=== PATIENT | male | born 1965 | race Caucasian/White ===

== ENCOUNTER 2018-07-14 02:09 | Emergency (ER) | payer OTHER ==
--- NOTE | 2018-07-14 03:19 | XR ---
EXAM: XR Chest, 2 Views CLINICAL HISTORY: ITS.REASON XR Reason: Chest Pain TECHNIQUE: Frontal and lateral views of the chest. COMPARISON: No relevant prior studies available. FINDINGS: Lungs: Unremarkable. No consolidation. Pleural space: Unremarkable. No pneumothorax. Heart: Unremarkable. No cardiomegaly. Mediastinum: Unremarkable. Bones/joints: Degenerative changes noted involving the thoracic spine. IMPRESSION: No focal consolidation or definite acute cardiopulmonary process identified.
[2018-07-14 03:21] LABS: ALT 29 U/L (21-72); AST 24 U/L (17-59); Albumin 4.3 g/dL (3.5-5.0); Alkaline Phosphatase 60 U/L (38-126); Anion Gap 10 mmol/L; Basophils % (A) 1 %; Blood Urea Nitrogen 20 mg/dL (9-20); Calcium 9.8 mg/dL (8.4-10.2); Carbon Dioxide 28 mmol/L (22-30); Chloride 102 mmol/L (98-107); Eosinophils # (A) 0.1 k/uL (0-0.7); Eosinophils % (A) 1 %; Glucose 110 mg/dL (74-99); HCT 47.5 % (39.0-53.0); HGB 15.9 gm/dL (13.0-17.5); INR 1.1 (<1.2); Lymphocytes # (A) 1.8 k/uL (1.0-4.8); Lymphocytes % (A) 35 %; MCH 31.2 pg (25.0-35.0); MCHC 33.5 g/dL (31.0-37.0); MCV 93.2 fL (80.0-100.0); Magnesium 1.8 mg/dL (1.6-2.3); Mean Platelet Volume 6.9; Monocytes # (A) 0.4 k/uL (0-1.0); Monocytes % (A) 7 %; Neutrophils # (A) 2.6 k/uL (1.3-7.7); Neutrophils % (A) 52 %; Partial Thromboplastin Time 28.1 sec (22.0-30.0); Platelet Count 220 k/uL (150-450); Potassium 3.4 mmol/L (3.5-5.1); Prothrombin Time 11.3 sec (9.0-12.0); RDW 13.3 % (11.5-15.5); Sodium 140 mmol/L (137-145); Total Bilirubin 0.6 mg/dL (0.2-1.3); Total Protein 7.3 g/dL (6.3-8.2)
--- NOTE | 2018-07-14 04:20 | ED ---
Chest Pain HPI - General Chief Complaint: Chest Pain Stated Complaint: chest pressure Time Seen by Provider: 07/14/18 02:25 Source: patient Mode of arrival: ambulatory Limitations: no limitations - History of Present Illness Initial Comments: This patient's 52-year-old man who presents to be evaluated for chest pains. He states that he had gone to sleep and then was awakened by feeling of tightness in his chest. He states that he also felt like he cannot catch his breath. I states that after being awake for sure. Time the symptoms all resolved and that he feels well now. He states that he does not get exertional chest pain. He does not have any other anginal type symptoms, including no diaphoresis, dyspnea, nausea or vomiting, lightheadedness or palpitations MD Complaint: chest pain Onset/Timin -: hour(s) Onset: awoke with symptoms Pain Location: substernal Pain Radiation: LUE Severity: moderate Quality: tightness Consistency: now resolved Improves With: nothing Worsens With: nothing Treatments Prior to Arrival: none - Related Data Allergies Allergy/AdvReac Type Severity Reaction Status Date / Time No Known Allergies Allergy Verified 07/14/18 02:18 Review of Systems ROS Statement: Those systems with pertinent positive or pertinent negative responses have been documented in the HPI. ROS Other: All systems not noted in ROS Statement are negative. Constitutional: Denies: fever, chills Respiratory: Denies: cough, dyspnea Cardiovascular: Reports: chest pain. Denies: palpitations, dyspnea on exertion, orthopnea, edema, syncope Gastrointestinal: Denies: abdominal pain, nausea, vomiting Genitourinary: Denies: dysuria, hematuria Musculoskeletal: Denies: back pain Skin: Denies: rash Neurological: Denies: headache, weakness, numbness EKG Findings - EKG Comments: EKG Findings:: Partial bundle branch block - EKG Results: EKG: interpreted by ERMD, sinus rhythm, normal axis, normal ST/T Past Medical History Additional Past Medical History / Comment(s): diverticulitis History of Any Multi-Drug Resistant Organisms: None Reported Past Surgical History: Appendectomy, Heart Catheterization, Hernia Repair Additional Past Surgical History / Comment(s): part of large intestine removed Past Psychological History: No Psychological Hx Reported Smoking Status: Never smoker Past Alcohol Use History: Occasional Past Drug Use History: None Reported General Exam Limitations: no limitations General appearance: alert, in no apparent distress Head exam: Present: atraumatic, normocephalic Eye exam: Present: normal appearance. Absent: scleral icterus, conjunctival injection ENT exam: Present: normal oropharynx Neck exam: Present: normal inspection Respiratory exam: Present: normal lung sounds bilaterally. Absent: respiratory distress, wheezes, rales, rhonchi, stridor Cardiovascular Exam: Present: regular rate, normal rhythm, normal heart sounds. Absent: systolic murmur, diastolic murmur, rubs, gallop GI/Abdominal exam: Present: soft. Absent: distended, tenderness, guarding, rebound, rigid, mass Extremities exam: Present: normal inspection, normal capillary refill. Absent: pedal edema, calf tenderness Back exam: Absent: CVA tenderness (R), CVA tenderness (L) Neurological exam: Present: alert Skin exam: Present: warm, dry, intact, normal color. Absent: rash Course Vital Signs 07/14/18 07/14/18 02:14 04:30 Temperature 98.5 F 98.1 F Pulse Rate 94 80 Respiratory 18 20 Rate Blood Pressure 187/108 172/93 O2 Sat by Pulse 98 98 Oximetry Chest Pain MDM - MDM Patient is 52-year-old man who presents with symptoms suggestive of episode asleep apnea. He otherwise is fairly active and does not get exertional chest pains. We discussed further workup options, the patient would like to follow-up as an outpatient to have a stress test and probably a sleep study. We discussed appropriate return parameters. Disposition Clinical Impression: Chest pain Disposition: HOME SELF-CARE Condition: Good Instructions (If sedation given, give patient instructions): Chest Pain (ED) Is patient prescribed a controlled substance at d/c from ED?: No Referrals: Nonstaff,Physician [Primary Care Provider] - 1-2 days
[2018-07-14 04:32] VITALS: BP 172/93; PULSE 80; RESP 20; TEMP 98.1
== END 2018-07-14 04:32 | disposition home or self-care (01) ==
LOC: EC 02:09
DX: R07.2 Precordial pain (principal); Z95.818 Presence of other cardiac implants and grafts
CPT/HCPCS: 36415; 71046; 80053; 83735; 84484; 85025; 85610; 85730; 93005; 99285

== ENCOUNTER → 2020-01-19 | Outpatient (CLI) | payer SELFPAY | END | disposition home or self-care (01) | LOC: RADNMMAIN 08:36 | PROVIDERS: ATTEND Family Medicine | DX: Z53.9 Procedure and treatment not carried out, unspecified reason (principal) ==

== ENCOUNTER → 2020-01-22 | Outpatient (CLI) | payer SELFPAY ==
--- NOTE | 2020-01-22 14:20 | EST ---
EXERCISE STRESS AGE: 54 SEX: M HT: 6'2" WT: 456 lbs. PROTOCOL: STAGE: 3 DURATION OF EXERCISE: 8:58 HEART RATE REST: 104 BLOOD PRESSURE REST: 163/95 MAXIMUM HEART RATE ACHIEVED: 150 MAXIMUM BLOOD PRESSURE: 163/95 85% MPHR: 141 100% MPHR: 166 METS: 10.3 INDICATIONS: Chest pressure CLINICAL INFORMATION: Exercise stress test for evaluation of chest pain. Baseline heart rate 104 beats per minute. Baseline blood pressure 163/95 mmHg. Baseline 12-lead ECG shows sinus rhythm with normal P and narrow QRS, normal ST segments and abnormal CO interval with subtle nonspecific ST-segment depression. The patient exercised on a [place] protocol for almost 9 minutes, achieving a peak heart rate of 150 beats per minute, hypertensive response to exercise. Peak blood pressure 140/104 mmHg. There was no definite ECG evidence for ischemia. Very subtle upsloping ST depression was noted, occasional PVCs were noted. IMPRESSION: Good exercise capacity. Occasional PVCs. Hypertensive response to exercise. No ECG evidence for ischemia. MMODL / IJN: [id number] /
== END | disposition home or self-care (01) ==
LOC: RADNMMAIN 10:26
PROVIDERS: ATTEND Physician Assistant
DX: R07.9 Chest pain, unspecified (principal)
CPT/HCPCS: 93017

== ENCOUNTER 2020-01-24 15:04 | Emergency (ER) | payer OTHER ==
[2020-01-24 15:13] VITALS: RESP 18; TEMP 97.9
[2020-01-24 15:52] LABS: Basophils % (A) 0 %; Eosinophils # (A) 0.1 k/uL (0-0.7); Eosinophils % (A) 1 %; HCT 43.1 % (39.0-53.0); HGB 14.7 gm/dL (13.0-17.5); Lymphocytes # (A) 1.5 k/uL (1.0-4.8); Lymphocytes % (A) 23 %; MCH 31.5 pg (25.0-35.0); MCHC 34.1 g/dL (31.0-37.0); MCV 92.3 fL (80.0-100.0); Mean Platelet Volume 7.3; Monocytes # (A) 0.4 k/uL (0-1.0); Monocytes % (A) 6 %; Neutrophils # (A) 4.4 k/uL (1.3-7.7); Neutrophils % (A) 68 %; Platelet Count 191 k/uL (150-450); RBC 4.67 m/uL (4.30-5.90); RDW 12.3 % (11.5-15.5); WBC 6.5 k/uL (3.8-10.6)
--- NOTE | 2020-01-24 15:54 | ED ---
Chest Pain HPI - General Chief Complaint: Chest Pain Stated Complaint: chest pain/left arm numbness Time Seen by Provider: 01/24/20 15:10 Source: patient Mode of arrival: wheelchair Limitations: no limitations - History of Present Illness Initial Comments: Patient is a 54-year-old male with past history of hypertension who presents to the emergency room with reported high blood pressure and chest pain. Patient states that his chest pain has been present since Saturday after he had a stress test. Reports as a pressure over the left side of his chest with radiation into his left arm. Makes him feel short of breath. Breathing is worse when he is active. No history of underlying lung conditions. Denies previous history of coronary disease. Denies hemoptysis, cough, fevers or chills. No history of DVT or PE. No ripping or tearing sensation to his back. No calf pain or swelling. No recent travel. Patient also reports to elevated blood pressure readings. Has been taking his blood pressure consistently for the past 5 days and is noted to be into the 150s. Has been taking his blood pressure medication as directed. Denies nausea or vomiting. No abdominal pain. No changes in bowel or bladder habits. No other alleviating, precipitating or modifying factors - Related Data Allergies Allergy/AdvReac Type Severity Reaction Status Date / Time No Known Allergies Allergy Verified 01/24/20 15:13 Review of Systems ROS Statement: Those systems with pertinent positive or pertinent negative responses have been documented in the HPI. ROS Other: All systems not noted in ROS Statement are negative. EKG Findings - EKG Comments: EKG Findings:: EKG demonstrates normal sinus rhythm with a ventricular rate of 79. AK interval 168. QRS 102. QTC of 460. No acute ST segment elevations or depressions concerning for ischemic changes Past Medical History Past Medical History: Hypertension, Prostate Disorder Additional Past Medical History / Comment(s): diverticulitis History of Any Multi-Drug Resistant Organisms: None Reported Past Surgical History: Appendectomy, Heart Catheterization, Hernia Repair Additional Past Surgical History / Comment(s): part of large intestine removed Past Psychological History: No Psychological Hx Reported Smoking Status: Never smoker Past Alcohol Use History: Occasional Past Drug Use History: None Reported General Exam Limitations: no limitations General appearance: alert, in no apparent distress Head exam: Present: atraumatic, normocephalic, normal inspection Eye exam: Present: normal appearance, PERRL, EOMI. Absent: scleral icterus, conjunctival injection, periorbital swelling ENT exam: Present: normal exam, mucous membranes moist Neck exam: Present: normal inspection. Absent: tenderness, meningismus, lymp hadenopathy Respiratory exam: Present: normal lung sounds bilaterally. Absent: respiratory distress, wheezes, rales, rhonchi, stridor Cardiovascular Exam: Present: regular rate, normal rhythm, normal heart sounds, other (equal upper extremity pulses). Absent: systolic murmur, diastolic murmur, rubs, gallop, clicks GI/Abdominal exam: Present: soft, normal bowel sounds. Absent: distended, tenderness, guarding, rebound, rigid Extremities exam: Present: normal inspection, full ROM, normal capillary refill. Absent: tenderness, pedal edema, joint swelling, calf tenderness Back exam: Present: normal inspection Neurological exam: Present: alert, oriented X3, CN II-XII intact Psychiatric exam: Present: normal affect, normal mood Skin exam: Present: warm, dry, intact, normal color. Absent: rash Course Vital Signs 01/24/20 01/24/20 15:10 17:22 Temperature 97.9 F Pulse Rate 90 77 Respiratory 18 18 Rate Blood Pressure 171/94 156/97 O2 Sat by Pulse 99 99 Oximetry Chest Pain MDM - MDM Upon arrival the patient is placed into room 3. A thorough history and physical exam was performed here patient is placed on continuous pulse ox and cardiac monitoring. 12-lead EKG was performed. Laboratory studies were conducted. Patient went for chest x-ray. Laboratory studies are unremarkable. D-dimer 0.47. Troponin is less than 0.012. Chest x-ray demonstrates no acute intrathoracic process. I discussed results with the patient. I discussed diagnosis, differential treatment options. I did offer hospital admission in order to trend his troponins however the patient refused stating that he does have an echo scheduled for Saturday. I did review the patient's stress test results which demonstrated no signs of ischemia. I discussed these results with the patient. I did recommend that he follow-up for the echo appointment on Saturday. Return to the emergency room for any new or worsening symptoms. Patient does have an appointment with his primary care doctor tomorrow for a blood pressure recheck. Patient was in agreement with this plan and was discharged home in stable condition Disposition Clinical Impression: Chest pain Disposition: HOME SELF-CARE Condition: Stable Instructions (If sedation given, give patient instructions): Chest Pain (ED) Additional Instructions: Please follow-up at your scheduled echo on Saturday. Return to the emergency room for any new or worsening symptoms Is patient prescribed a controlled substance at d/c from ED?: No Referrals: Charity Melendez DO [Primary Care Provider] - 1-2 days Time of Disposition: 17:28
[2020-01-24 16:01] LABS: ALT 27 U/L (4-49); AST 33 U/L (17-59); African American GFR (CKD) >90 (>60 ml/min/1.73 sqM); Albumin 4.5 g/dL (3.5-5.0); Alkaline Phosphatase 51 U/L (38-126); Anion Gap 10 mmol/L; Blood Urea Nitrogen 16 mg/dL (9-20); Calcium 9.4 mg/dL (8.4-10.2); Carbon Dioxide 25 mmol/L (22-30); Chloride 103 mmol/L (98-107); Glucose 100 mg/dL (74-99); Magnesium 1.9 mg/dL (1.6-2.3); Non-African American GFR(CKD) >90 (>60 ml/min/1.73 sqM); Potassium 3.8 mmol/L (3.5-5.1); Sodium 138 mmol/L (137-145); Total Protein 7.5 g/dL (6.3-8.2)
--- NOTE | 2020-01-24 16:05 | XR ---
EXAMINATION TYPE: XR chest 2V DATE OF EXAM: 01/24/2020 COMPARISON: 07/14/2018 HISTORY: Chest pain TECHNIQUE: FINDINGS: Heart is normal. Lungs are clear. Diaphragm is normal. There are no hilar masses. There are chest leads. Bony thorax is intact. IMPRESSION: Normal chest. No change.
[2020-01-24 16:22] LABS: D-Dimer 0.47 mg/L FEU (<0.60); INR 0.9 (<1.2); Partial Thromboplastin Time 24.5 sec (22.0-30.0); Prothrombin Time 9.8 sec (9.0-12.0)
[2020-01-24 17:23] VITALS: BP 156/97; PULSE 77
== END 2020-01-24 17:55 | disposition home or self-care (01) ==
LOC: EC 15:04
DX: R07.89 Other chest pain (principal)
CPT/HCPCS: 36415; 71046; 80053; 83735; 83880; 84484; 85025; 85379; 85610; 85730; 93005; 99285

== ENCOUNTER 2020-02-02 17:49 | Emergency (ER) | payer OTHER ==
[2020-02-02 17:57] VITALS: RESP 18; TEMP 98.8
[2020-02-02] MEDS ORDERED: ONDANSETRON 4 MG/2 ML VIAL IVP STA (18:17)
[2020-02-02] MEDS ORDERED: MORPHINE SULFATE 4 MG/ML SYRINGE IV STA (18:17)
[2020-02-02] MEDS ORDERED: SODIUM CHLORIDE 0.9% 1,000 ML IV STA (18:17)
[2020-02-02 18:46] LABS: Basophils % (A) 0 %; Eosinophils # (A) 0.2 k/uL (0-0.7); Eosinophils % (A) 2 %; HCT 41.1 % (39.0-53.0); HGB 14.2 gm/dL (13.0-17.5); Lymphocytes # (A) 1.3 k/uL (1.0-4.8); Lymphocytes % (A) 13 %; MCH 33.1 pg (25.0-35.0); MCHC 34.6 g/dL (31.0-37.0); MCV 95.7 fL (80.0-100.0); Mean Platelet Volume 6.9; Monocytes # (A) 0.6 k/uL (0-1.0); Monocytes % (A) 6 %; Neutrophils # (A) 7.5 k/uL (1.3-7.7); Neutrophils % (A) 77 %; Platelet Count 189 k/uL (150-450); RBC 4.29 m/uL (4.30-5.90); RDW 11.9 % (11.5-15.5); WBC 9.7 k/uL (3.8-10.6)
[2020-02-02 18:57] LABS: ALT 24 U/L (4-49); AST 29 U/L (17-59); African American GFR (CKD) >90 (>60 ml/min/1.73 sqM); Alkaline Phosphatase 50 U/L (38-126); Amylase 43 U/L (30-110); Anion Gap 7 mmol/L; Blood Urea Nitrogen 17 mg/dL (9-20); Calcium 8.9 mg/dL (8.4-10.2); Carbon Dioxide 24 mmol/L (22-30); Chloride 101 mmol/L (98-107); Glucose 98 mg/dL (74-99); Non-African American GFR(CKD) >90 (>60 ml/min/1.73 sqM); Potassium 3.9 mmol/L (3.5-5.1); Sodium 132 mmol/L (137-145); Total Bilirubin 1.7 mg/dL (0.2-1.3); Total Protein 6.7 g/dL (6.3-8.2)
--- NOTE | 2020-02-02 19:07 | CT ---
EXAMINATION TYPE: CT abdomen pelvis w con DATE OF EXAM: 02/02/2020 COMPARISON: None. HISTORY: Left lower quadrant abdominal pain. History of diverticulitis. CT DLP: 1245 mGycm, Automated Exposure Control for Dose Reduction was Utilized. CONTRAST: CT scan of the abdomen and pelvis is performed without oral but with IV Contrast, patient injected wi th 100ml mL of Isovue 300. FINDINGS: LUNG BASES: No significant abnormality is appreciated. LIVER/GB: No significant abnormality is appreciated. PANCREAS: No significant abnormality is seen. SPLEEN: No significant abnormality is seen. ADRENALS: No significant abnormality is seen. KIDNEYS: Symmetric cortical medullary uptake and excretion without hydronephrosis seen bilaterally. BOWEL: Suboptimal evaluation without enteric contrast. No suspicious small or large bowel dilatation. Prior partial bowel resection with sutures sigmoid colon level left pelvis axial image 81. Diverticu la identified in the distal left: Left lower quadrant with moderate to severe wall thickening and foc al moderate to severe ill-defined fluid and fat stranding. There is small to moderate amount of free fluid left pelvis axial image 83. No free air. No well-formed fluid collection or drainable abscess. PROSTATE/SEMINAL VESICLES: Central calcifications in normal sized prostate. LYMPH NODES: No greater than 1cm abdominal or pelvic lymph nodes are appreciated. OSSEOUS STRUCTURES: Moderate to severe narrowing L5-S1 level. Mild facet arthropathy lower lumbar spi ne. OTHER: Minimal calcified plaque abdominal aorta extends into branch vessels. IMPRESSION: CT findings consistent with a moderate to severe but uncomplicated acute diverticulitis c entered left lower quadrant distal sigmoid colon level as detailed above.
--- NOTE | 2020-02-02 19:21 | ED ---
Abdominal Pain HPI - General Chief Complaint: Abdominal Pain Stated Complaint: ABD PAIN Time Seen by Provider: 02/02/20 18:00 Source: patient Mode of arrival: ambulatory Limitations: no limitations - History of Present Illness Initial Comments: Patient is a 54-year-old male presenting to emergency Department with complaints of lower left-sided abdominal pain starting yesterday. He states he does have a history of diverticulitis and has had a perforation in the past. He states he did go to his PCPs office yesterday and he was started on Cipro and Flagyl but was instructed that if the pain worsened to go into the ER. Patient states over the last 24 hours his pain has increased, is currently an 8/10. He states is all located in left lower quadrant. He does admit to large bowel removal, appendectomy, hernia repairs. He states his bowel movements have been regular, no urinary complaints. He does admit to nausea, no vomiting or diarrhea. He denies any chest pain or shortness of breath. He has no further complaints at this time. Upon arrival to the ER his vitals are stable. - Related Data Home Medications Medication Instructions Recorded Confirmed Ciprofloxacin HCl [Cipro] 500 mg PO BID 02/02/20 02/02/20 Escitalopram [Lexapro] 5 mg PO DAILY 02/02/20 02/02/20 Metoprolol Succinate (ER) [Toprol 25 mg PO DAILY 02/02/20 02/02/20 XL] Tamsulosin HCl [Flomax] 0.4 mg PO DAILY 02/02/20 02/02/20 amLODIPine [Norvasc] 5 mg PO BID 02/02/20 02/02/20 metroNIDAZOLE [Flagyl] 500 mg PO BID 02/02/20 02/02/20 Previous Rx's Medication Instructions Recorded Hydrocodone/Acetaminophen [[place] 1 tab PO Q6HR PRN 3 Days #12 tab 02/02/20 5-325] Allergies Allergy/AdvReac Type Severity Reaction Status Date / Time No Known Allergies Allergy Verified 02/02/20 19:01 Review of Systems ROS Statement: Those systems with pertinent positive or pertinent negative responses have been documented in the HPI. ROS Other: All systems not noted in ROS Statement are negative. Past Medical History Past Medical History: Coronary Artery Disease (CAD), Hypertension, Prostate Disorder Additional Past Medical History / Comment(s): diverticulitis History of Any Multi-Drug Resistant Organisms: None Reported Past Surgical History: Appendectomy, Heart Catheterization, Hernia Repair Additional Past Surgical History / Comment(s): part of large intestine removed Past Psychological History: No Psychological Hx Reported Smoking Status: Never smoker Past Alcohol Use History: Occasional Past Drug Use History: None Reported General Exam - General Exam Comments Initial Comments: GENERAL: Patient is well-developed and well-nourished. Patient is nontoxic and in no acute distress. HEAD: Atraumatic, normocephalic. EYES: Pupils equal round and reactive to light, extraocular movements intact, sclera anicteric, conjunctiva are normal. Eyelids were unremarkable. ENT: TMs normal, nares patent, oropharynx clear without exudates. Moist mucous memb ranes. NECK: Normal range of motion, supple without lymphadenopathy or JVD. LUNGS: Unlabored respirations. Breath sounds clear to auscultation bilaterally and equal. No wheezes rales or rhonchi. HEART: Regular rate and rhythm without murmurs, rubs or gallops. ABDOMEN: Severe tenderness to palpation of the left lower quadrant, left side of the abdomen, as is guarding. Soft, hypoactive bowel sounds. No rebound. No masses appreciated. : Deferred MUSCULOSKELETAL: Normal extremities with adequate strength and normal range of motion, no pitting or edema. No clubbing or cyanosis. NEUROLOGICAL: Patient is alert and oriented x 3. Motor and sensory are also intact. Cranial nerves II through XII grossly intact. Symmetrical smile. Normal speech, normal gait. PSYCH: Normal mood, normal affect. SKIN: Warm, Dry, normal turgor, no rashes or lesions noted. Limitations: no limitations Course Vital Signs 02/02/20 02/02/20 17:52 19:58 Temperature 98.8 F 98.8 F Pulse Rate 96 84 Respiratory 18 18 Rate Blood Pressure 152/89 126/78 O2 Sat by Pulse 100 97 Oximetry Medical Decision Making - Medical Decision Making Patient is a 54-year-old male, with history of diverticulitis, presenting with l eft lower quadrant pain since yesterday. He was started on Cipro and Flagyl by his PCP yesterday but the pain has intensified over the last 24 hours. His vital signs are stable. He does have significant pain left lower quadrant on exam. His labs show a stable white count 9.7, lactic acid is normal, lipase is normal. CT of the abdomen shows moderate to severe but uncomplicated acute diverticulitis centered in the left lower distal sigmoid colon. No other acute findings. Patient's pain has remained stable. Patient is comfortablel going home and continuing with already prescribed antibiotics. I will give him a prescription for pain control. I did recommend following up with his doctor in one to 3 days. Strict return parameters were discussed with the patient he verbalizes understanding. Case discussed with Dr. Fuller. - Lab Data Result diagrams: 02/02/20 18:33 02/02/20 18:33 Lab Results 02/02/20 02/02/20 02/02/20 Range/Units 18:33 18:33 18:33 WBC 9.7 (3.8-10.6) k/uL RBC 4.29 L (4.30-5.90) m/uL Hgb 14.2 (13.0-17.5) gm/dL Hct 41.1 (39.0-53.0) % MCV 95.7 (80.0-100.0) fL MCH 33.1 (25.0-35.0) pg MCHC 34.6 (31.0-37.0) g/dL RDW 11.9 (11.5-15.5) % Plt Count 189 (150-450) k/uL Neutrophils % 77 % Lymphocytes % 13 % Monocytes % 6 % Eosinophils % 2 % Basophils % 0 % Neutrophils # 7.5 (1.3-7.7) k/uL Lymphocytes # 1.3 (1.0-4.8) k/uL Monocytes # 0.6 (0-1.0) k/uL Eosinophils # 0.2 (0-0.7) k/uL Basophils # 0.0 (0-0.2) k/uL Sodium 132 L (137-145) mmol/L Potassium 3.9 (3.5-5.1) mmol/L Chloride 101 (98-107) mmol/L Carbon Dioxide 24 (22-30) mmol/L Anion Gap 7 mmol/L BUN 17 (9-20) mg/dL Creatinine 0.87 (0.66-1.25) mg/dL Est GFR (CKD-EPI)AfAm >90 (>60 ml/min/1.73 sqM) Est GFR (CKD-EPI)NonAf >90 (>60 ml/min/1.73 sqM) Glucose 98 (74-99) mg/dL Plasma Lactic Acid David (0.7-2.0) mmol/L Calcium 8.9 (8.4-10.2) mg/dL Total Bilirubin 1.7 H (0.2-1.3) mg/dL AST 29 (17-59) U/L ALT 24 (4-49) U/L Alkaline Phosphatase 50 (38-126) U/L Total Protein 6.7 (6.3-8.2) g/dL Albumin 4.0 (3.5-5.0) g/dL Amylase 43 (30-110) U/L Lipase 87 (23-300) U/L Urine Color Light Yellow Urine Appearance Clear (Clear) Urine pH 6.0 (5.0-8.0) Ur Specific [place] 1.015 (1.001-1.035) Urine Protein Negative (Negative) Urine Glucose (UA) Negative (Negative) Urine Ketones Trace H (Negative) Urine Blood Negative (Negative) Urine Nitrite Negative (Negative) Urine Bilirubin Negative (Negative) Urine Urobilinogen <2.0 (<2.0) mg/dL Ur Leukocyte Esterase Negative (Negative) 02/02/20 Range/Units 18:33 WBC (3.8-10.6) k/uL RBC (4.30-5.90) m/uL Hgb (13.0-17.5) gm/dL Hct (39.0-53.0) % MCV (80.0-100.0) fL MCH (25.0-35.0) pg MCHC (31.0-37.0) g/dL RDW (11.5-15.5) % Plt Count (150-450) k/uL Neutrophils % % Lymphocytes % % Monocytes % % Eosinophils % % Basophils % % Neutrophils # (1.3-7.7) k/uL Lymphocytes # (1.0-4.8) k/uL Monocytes # (0-1.0) k/uL Eosinophils # (0-0.7) k/uL Basophils # (0-0.2) k/uL Sodium (137-145) mmol/L Potassium (3.5-5.1) mmol/L Chloride (98-107) mmol/L Carbon Dioxide (22-30) mmol/L Anion Gap mmol/L BUN (9-20) mg/dL Creatinine (0.66-1.25) mg/dL Est GFR (CKD-EPI)AfAm (>60 ml/min/1.73 sqM) Est GFR (CKD-EPI)NonAf (>60 ml/min/1.73 sqM) Glucose (74-99) mg/dL Plasma Lactic Acid David 0.8 (0.7-2.0) mmol/L Calcium (8.4-10.2) mg/dL Total Bilirubin (0.2-1.3) mg/dL AST (17-59) U/L ALT (4-49) U/L Alkaline Phosphatase (38-126) U/L Total Protein (6.3-8.2) g/dL Albumin (3.5-5.0) g/dL Amylase (30-110) U/L Lipase (23-300) U/L Urine Color Urine Appearance (Clear) Urine pH (5.0-8.0) Ur Specific [place] (1.001-1.035) Urine Protein (Negative) Urine Glucose (UA) (Negative) Urine Ketones (Negative) Urine Blood (Negative) Urine Nitrite (Negative) Urine Bilirubin (Negative) Urine Urobilinogen (<2.0) mg/dL Ur Leukocyte Esterase (Negative) Disposition Clinical Impression: Abdominal pain, Diverticulitis Disposition: HOME SELF-CARE Condition: Stable Instructions (If sedation given, give patient instructions): Diverticulitis (ED) Additional Instructions: Please return to the Emergency Department if symptoms worsen or any other concerns. Continue with already prescribed Flagyl and Cipro medications. May take [place] for severe pain. Follow-up with PCP in 3-5 days. Prescriptions: Hydrocodone/Acetaminophen [[place] 5-325] 1 tab PO Q6HR PRN 3 Days #12 tab PRN Reason: Pain Is patient prescribed a controlled substance at d/c from ED?: Yes When asked, does pt state using other controlled substances?: No If prescribed controlled substance>3 days was MAPS reviewed?: Prescribed <3 Days If opioid is for acute pain is fill amount 7 days or less?: Yes If Rx opioid, was Start Talking consent form obtained?: Yes Referrals: Charity Melendez, [Primary Care Provider] - 1-2 days
[2020-02-02] MEDS ORDERED: MORPHINE SULFATE 2 MG/ML SYRINGE IVP ONE (19:36)
[2020-02-02 19:42] LABS: Appearance,Urine Clear (Clear); Bilirubin,Urine Negative (Negative); Blood,Urine Negative (Negative); Color,Urine Light Yellow; Glucose,Urine (UA) Negative (Negative); Ketones,Urine Trace (Negative); Leukocyte Esterase,Urine Negative (Negative); Nitrite,Urine Negative (Negative); Protein,Urine Negative (Negative); Specific Gravity,Urine 1.015 (1.001-1.035); Urobilinogen,Urine <2.0 mg/dL (<2.0)
[2020-02-02 20:02] VITALS: BP 126/78; PULSE 84
== END 2020-02-02 19:58 | disposition home or self-care (01) ==
LOC: EC 17:49
DX: K57.32 Diverticulitis of large intestine without perforation or abscess without bleeding (principal); I25.10 Atherosclerotic heart disease of native coronary artery without angina pectoris; I10 Essential (primary) hypertension; N42.9 Disorder of prostate, unspecified; Z79.899 Other long term (current) drug therapy; Z95.5 Presence of coronary angioplasty implant and graft; Z90.49 Acquired absence of other specified parts of digestive tract
CPT/HCPCS: 36415; 80053; 82150; 83605; 83690; 85025; 81003; 74177; 99284; 96374; 96375; 96376; 96361; J2270 ×2; J2405; Q9967

== ENCOUNTER 2020-06-16 08:50 | Day surgery (SDC) | payer OTHER ==
[2020-06-15 08:53] VITALS: BMI 27.8
[~2020-06-16 08:50] MED LIST: LACTATED RINGERS 1,000 ML IV SCH
[2020-06-16 09:13] VITALS: TEMP 98.8
[2020-06-16] MEDS ORDERED: LIDOCAINE 1% (10MG/ML) FOR IV START INTRADERMA ONE (09:13)
[2020-06-16] MEDS ORDERED: LIDOCAINE 1% INJ 10MG/ML (20 ML MDV) ONE (10:15)
[2020-06-16] MEDS ORDERED: PROPOFOL 10 MG/ML 20 ML VIAL IV ONE (10:15)
--- NOTE | 2020-06-16 10:19 | P.GSHP ---
History of Present Illness H&P Date: 06/16/20 Chief Complaint: History of diverticulosis, epigastric pain A 54-year-old male with history of diverticulitis. He presents today for colonoscopy and EGD evaluation of epigastric pain Past Medical History Past Medical History: Coronary Artery Disease (CAD), Hypertension, Prostate Disorder Additional Past Medical History / Comment(s): diverticulitis, SHORTNESS OF BREATH AT TIMES - HAD CARDIAC WORK UP History of Any Multi-Drug Resistant Organisms: None Reported Past Surgical History: Appendectomy, Bowel Resection, Heart Catheterization, Hernia Repair Additional Past Surgical History / Comment(s): part of large intestine removed Past Anesthesia/Blood Transfusion Reactions: No Reported Reaction Smoking Status: Never smoker - Past Family History Sister(s) Family Medical History: Cancer Additional Family Medical History / Comment(s): BREAST CANCER Medications and Allergies Home Medications Medication Instructions Recorded Confirmed Type Escitalopram [Lexapro] 5 mg PO DAILY 02/02/20 06/16/20 History Metoprolol Succinate (ER) [Toprol 25 mg PO DAILY 02/02/20 06/16/20 History XL] amLODIPine [Norvasc] 10 mg PO DAILY 02/02/20 06/16/20 History Aspirin EC [Ecotrin Low Dose] 81 mg PO DAILY 06/15/20 06/16/20 History lisinopriL 20 mg PO DAILY 06/15/20 06/16/20 History Allergies Allergy/AdvReac Type Severity Reaction Status Date / Time No Known Allergies Allergy Verified 06/16/20 09:11 Surgical - Exam Vital Signs Temp Pulse Resp BP Pulse Ox 98.8 F 72 16 156/97 98 06/16/20 09:12 06/16/20 09:12 06/16/20 09:12 06/16/20 09:12 06/16/20 09:12 - General well developed, well nourished, no distress - Eyes PERRL - ENT normal pinna - Neck no masses - Respiratory normal expansion - Cardiovascular Rhythm: regular - Abdomen Abdomen: soft, non tender Assessment and Plan Assessment: History of diverticulitis. We'll perform colonoscopy. We will also perform EGD for epigastric pain.
--- NOTE | 2020-06-16 10:34 | P.OP ---
Date of Procedure: 06/16/20 Preoperative Diagnosis: Epigastric pain Diverticulitis Postoperative Diagnosis: Antral gastritis Mild esophagitis Mild diverticulosis Procedure(s) Performed: EGD Colonoscopy Anesthesia: MAC Surgeon: Chalo Ko Pathology: other (Antrum, esophagus) Condition: stable Disposition: PACU Description of Procedure: The patient's placed on the endoscopy table in the lateral position. She he received IV sedation. The gastroscope placed oropharynx and passed in the esophagus into the stomach. Scope was then placed through the pylorus. The first and second portion of the duodenum appeared normal. Scope was then brought back the antrum and this was mildly inflamed. A biopsies performed. The scope was retroflexed and the remainder of the stomach appeared normal. There is no hiatal hernia. The GE junction was at 47 is. The distal esophagus appeared minimally inflamed a biopsies performed. The proximal esophagus appeared normal. Scope was withdrawn for patient. Next digital rectal exam was performed which revealed no abnormalities. Flexible colonoscope was then placed patient anus passed throughout the entire colon. The ileocecal valve was visualized. Cecum, ascending and transverse colon appeared normal. The descending and sigmoid colon had a few scattered diverticula. Scope was then brought back the rectum this appeared normal. Scope withdrawn for patient.
[2020-06-16 10:55] VITALS: BP 134/93; PULSE 69; RESP 18
== END 2020-06-16 11:08 | disposition home or self-care (01) ==
LOC: ORWHC2ENDO 08:50
PROVIDERS: ATTEND Surgery
DX: K57.30 Diverticulosis of large intestine without perforation or abscess without bleeding (principal); K29.70 Gastritis, unspecified, without bleeding; K20.90 Esophagitis, unspecified without bleeding; I25.10 Atherosclerotic heart disease of native coronary artery without angina pectoris; I10 Essential (primary) hypertension; N42.9 Disorder of prostate, unspecified; K08.89 Other specified disorders of teeth and supporting structures; Z90.49 Acquired absence of other specified parts of digestive tract; Z98.890 Other specified postprocedural states; Z79.899 Other long term (current) drug therapy; Z79.82 Long term (current) use of aspirin; Z80.3 Family history of malignant neoplasm of breast
CPT/HCPCS: 43239; 45378; 88305

== ENCOUNTER → 2020-09-19 | Outpatient (CLI) | payer OTHER ==
--- NOTE | 2020-09-19 16:58 | US ---
EXAMINATION TYPE: US carotid duplex BILAT DATE OF EXAM: 09/19/2020 COMPARISON: NONE CLINICAL HISTORY: R42 Dizziness and giddiness. Dizziness EXAM MEASUREMENTS: RIGHT: Peak Systolic Velocity (PSV) cm/sec ----- Right CCA: 77.9 ----- Right ICA: 95.3 ----- Right ECA: 75.0 ICA/CCA ratio: 1.3 RIGHT: End Diastole cm/sec ----- Right CCA: 15.4 ----- Right ICA: 34.3 ----- Right ECA: 11 LEFT: Peak Systolic Velocity (PSV) cm/sec ----- Left CCA: 95.3 ----- Left ICA: 75.0 ----- Left ECA: 88.1 ICA/CCA ratio: 0.8 LEFT: End Diastole cm/sec ----- Left CCA: 24.1 ----- Left ICA: 29.9 ----- Left ECA: 14.0 VERTEBRALS (direction of flow): Right Vertebral: Antegrade Left Vertebral: Antegrade Rhythm: Normal No evidence of hemodynamically significant stenosis of the bilateral internal carotid arteries. There is mild atherosclerotic plaque at the common carotid artery bifurcations. Mild atherosclerotic plaque at the proximal left internal carotid artery. IMPRESSION: 1. Less than 50% stenosis of the bilateral internal carotid arteries. Mild atherosclerotic plaque at the common carotid artery bifurcations and proximal left internal carotid artery. Criteria for Assigning % of Stenosis / Diameter reduction (Estimation based on the indirect measurements of the internal carotid artery velocities (ICA PSV). 1. Normal (no stenosis)=ICA PSV < 125 cm/s: ratio < 2.0: ICA EDV<40 cm/s. 2. Less than 50% stenosis=ICA PSV < 125 cm/s: ratio < 2.0: ICA EDV<40 cm/s. 3. 50 to 69% stenosis=ICA PSV of 125 to 230 cm/s: ration 2.0 ? 4.0: ICA EDV 40-100 cm/s. 4. Greater than 70% stenosis to near occlusion= ICA PSV > 230 cm/s: ratio > 4.0: ICA EDV > 100 cm/s. 5. Near occlusion= ICA PSV velocities may be low or undetectable: variable ratio and ICA EDV. 6. Total occlusion=unable to detect flow.
== END ==
LOC: RADUSWWP 13:14
PROVIDERS: ATTEND Psychiatry & Neurology Neurology
DX: I65.23 Occlusion and stenosis of bilateral carotid arteries (principal); R42 Dizziness and giddiness
CPT/HCPCS: 93880

== ENCOUNTER 2024-01-30 10:39 | Day surgery (SDC) | payer MEDICARE, OTHER ==
[~2024-01-30 10:39] MED LIST changes: +HYDROmorphone 0.5 MG/0.5 ML SYRINGE IVP PRN; -LACTATED RINGERS 1,000 ML IV SCH; +LIDOCAINE 1% (10MG/ML) FOR IV START INTRADERMA PRN; +ONDANSETRON 4 MG/2 ML VIAL IVP PRN
[2024-01-30] MEDS: IV FLUID CONTINUATION 1,000 ML IV ONE ×2 (11:15→13:41)
[2024-01-30 11:50] LABS: Basophils % (A) 1 %; Eosinophils # (A) 0.1 k/uL (0-0.7); Eosinophils % (A) 1 %; HCT 42.3 % (39.0-53.0); HGB 14.6 gm/dL (13.0-17.5); Lymphocytes # (A) 1.5 k/uL (1.0-4.8); Lymphocytes % (A) 26 %; MCH 31.5 pg (25.0-35.0); MCHC 34.5 g/dL (31.0-37.0); MCV 91.1 fL (80.0-100.0); Mean Platelet Volume 7.6; Monocytes # (A) 0.4 k/uL (0-1.0); Monocytes % (A) 6 %; Neutrophils # (A) 3.7 k/uL (1.3-7.7); Neutrophils % (A) 64 %; Platelet Count 230 k/uL (150-450); RBC 4.64 m/uL (4.30-5.90); RDW 12.2 % (11.5-15.5); WBC 5.8 k/uL (3.8-10.6)
[2024-01-30] MEDS: DEXAMETHASONE SOD PHOSPHATE 4 MG/ML 1 ML VIAL IV ONE (11:58)
[2024-01-30] MEDS: LACTATED RINGERS 1,000 ML IV SCH (11:58)
[2024-01-30] MEDS: ONDANSETRON 4 MG/2 ML VIAL IVP ONE (11:58)
[2024-01-30] MEDS: ACETAMINOPHEN TAB 500 MG TAB PO PRN (11:59)
[2024-01-30] MEDS: MELOXICAM 7.5 MG TAB PO PRN (11:59)
[2024-01-30 12:02] LABS: African American GFR (CKD) >90 (>60 ml/min/1.73 sqM); Anion Gap 6 mmol/L; Blood Urea Nitrogen 19 mg/dL (9-20); Calcium 9.8 mg/dL (8.4-10.2); Carbon Dioxide 27 mmol/L (22-30); Chloride 109 mmol/L (98-107); Glucose 92 mg/dL (74-99); Non-African American GFR(CKD) >90 (>60 ml/min/1.73 sqM); Potassium 3.9 mmol/L (3.5-5.1); Sodium 142 mmol/L (137-145)
[2024-01-30] MEDS: MIDAZOLAM 2 MG/2 ML VIAL IV PRN (12:45)
[2024-01-30] MEDS: HEPARIN SODIUM,PORCINE 5,000 UNIT/ML 1 ML VIAL SQ PRN (12:45)
--- NOTE | 2024-01-30 12:53 | P.GSHP ---
History of Present Illness H&P Date: 01/30/24 CHIEF COMPLAINT: Inguinal hernia, right. HISTORY OF PRESENT ILLNESS: The patient is a 58-year-old male who presents with a history of swelling and pain along the right groin. He has had previous repair. He's noted increased swelling including pain of the area. Now he presents for repair of his inguinal hernia. PAST MEDICAL HISTORY: Please see list. PAST SURGICAL HISTORY: Please see list. MEDICATIONS: Please see list. ALLERGIES: Please see list. SOCIAL HISTORY: No illicit drug use FAMILY HISTORY: No reports of Crohn disease or ulcerative colitis. REVIEW OF ORGAN SYSTEMS: CONSTITUTIONAL: No reports of fevers or chills. No reports of weight loss despite prior attempts. GI: Denies any blood in stools or constipation. PHYSICAL EXAM: VITAL SIGNS: Stable GENERAL: Well-developed pleasant male in no acute distress. HEENT: No scleral icterus. Extraocular movements grossly intact. Moist buccal mucosa. NECK: Supple without lymphadenopathy. CHEST: Unlabored respirations. Equal bilateral excursions. CARDIOVASCULAR: Regular rate and rhythm. Distal 2+ pulses. ABDOMEN: Soft, nondistended. No peritoneal signs. Palpable defect of the right groin. MUSCULOSKELETAL: No clubbing, cyanosis, or edema. ASSESSMENT: 1. Inguinal hernia, right PLAN: 1. Recommend proceeding with a robotic inguinal repair with mesh with possible bilateral approach. 2. Benefits and risks of surgical intervention was discussed including possibility of open technique. 3. DVT prophylaxis. 4. Antibiotic prophylaxis. 5. Non narcotic pain management including abdominal wall block described 6. Blood sugar glucose described. 7. Weight loss management described. Past Medical History Past Medical History: Coronary Artery Disease (CAD), Chest Pain / Angina, Hyperlipidemia, Hypertension, Sleep Apnea/CPAP/BIPAP Additional Past Medical History / Comment(s): hx diverticulitis, SHORTNESS OF BREATH AT TIMES - HAD CARDIAC WORK UP , enlarged heart. sleep apnea - does not wear cpap. dry skin on hands. Plantar fasciitis. rt arm, hand and shoulder some numbness History of Any Multi-Drug Resistant Organisms: None Reported Past Surgical History: Appendectomy, Bowel Resection, Heart Catheterization, Hernia Repair Additional Past Surgical History / Comment(s): part of large intestine removed, neck surgery 2021. bilater inguinal Past Anesthesia/Blood Transfusion Reactions: No Reported Reaction Smoking Status: Never smoker - Past Family History Sister(s) Family Medical History: Cancer Additional Family Medical History / Comment(s): BREAST CANCER Medications and Allergies Home Medications Medication Instructions Recorded Confirmed Type Metoprolol Succinate (ER) [Toprol 25 mg PO DAILY 02/02/20 01/30/24 History XL] amLODIPine [Norvasc] 10 mg PO DAILY 02/02/20 01/30/24 History Aspirin EC [Ecotrin Low Dose] 81 mg PO DAILY 06/15/20 01/30/24 History Atorvastatin [Lipitor] 20 mg PO DAILY 01/24/24 01/30/24 History Clobetasol Propionate [Temovate 1 applic TOPICAL DIRECTED PRN 01/24/24 01/30/24 History 0.05% Cream] NIFEdipine XL [Procardia Xl] 30 mg PO DAILY 01/24/24 01/30/24 History Naltrexone HCl 50 mg PO DAILY 01/24/24 01/30/24 History Naproxen Sodium [Aleve] 220 mg PO DAILY 01/24/24 01/30/24 History Sacubitril/Valsartan [Entresto 24 1 tab PO BID 01/24/24 01/30/24 History mg-26 mg Tablet] Unk Magox 1 tab PO DAILY 01/24/24 01/30/24 History Unk Vitamin C 1 tab PO DAILY 01/24/24 01/30/24 History Vitamin B12 1 tab PO WEEKLY 01/24/24 01/30/24 History hydroCHLOROthiazide 25 mg PO DAILY 01/24/24 01/30/24 History [Hydrochlorothiazide] tadalafiL [Tadalafil] 10 mg PO DIRECTED PRN 01/24/24 01/30/24 History Allergies Allergy/AdvReac Type Severity Reaction Status Date / Time No Known Allergies Allergy Verified 01/30/24 11:15 Results - Labs 01/30/24 11:38 01/30/24 11:38 Abnormal Lab Results - Last 24 Hours (Table) 01/30/24 Range/Units 11:38 Chloride 109 H (98-107) mmol/L Diabetes panel 01/30/24 Range/Units 11:38 Sodium 142 (137-145) mmol/L Potassium 3.9 (3.5-5.1) mmol/L Chloride 109 H (98-107) mmol/L Carbon Dioxide 27 (22-30) mmol/L BUN 19 (9-20) mg/dL Creatinine 0.87 (0.66-1.25) mg/dL Glucose 92 (74-99) mg/dL Calcium 9.8 (8.4-10.2) mg/dL Calcium panel 01/30/24 Range/Units 11:38 Calcium 9.8 (8.4-10.2) mg/dL Pituitary panel 01/30/24 Range/Units 11:38 Sodium 142 (137-145) mmol/L Potassium 3.9 (3.5-5.1) mmol/L Chloride 109 H (98-107) mmol/L Carbon Dioxide 27 (22-30) mmol/L BUN 19 (9-20) mg/dL Creatinine 0.87 (0.66-1.25) mg/dL Glucose 92 (74-99) mg/dL Calcium 9.8 (8.4-10.2) mg/dL Adrenal panel 01/30/24 Range/Units 11:38 Sodium 142 (137-145) mmol/L Potassium 3.9 (3.5-5.1) mmol/L Chloride 109 H (98-107) mmol/L Carbon Dioxide 27 (22-30) mmol/L BUN 19 (9-20) mg/dL Creatinine 0.87 (0.66-1.25) mg/dL Glucose 92 (74-99) mg/dL Calcium 9.8 (8.4-10.2) mg/dL
[2024-01-30] MEDS: TAMSULOSIN 0.4 MG CAP.ER.24H PO STA (13:05)
--- NOTE | 2024-01-30 13:09 | P.ANPRN ---
Procedure Note - Anesthesia - Nerve Block Performed Bilateral Transversus Abdominis Single Time Out Performed: Yes Date of Procedure: 01/30/24 Procedure Start Time: 12:45 Procedure Stop Time: 13:05 Location of Patient: PreOp Indication: Acute Post-Operative Pain, Requested by Surgeon Sedation Type: Sedate with meaningful contact maintained Preparation: Sterile Prep, Sterile Dressing Position: Supine Catheter: None Needle Types: Facet Needle Gauge: 20 Ultrasound used to visualize needle placement: Yes Ultrasound used to observe medication spread: Yes Injectate: Other (see comment) (Ropivacaine 0.25% 30 ml + decadron 2 mg per side) Blood Aspirated: No Pain Paresthesia on Injection Noted: No Resistance on Injection: Normal Image Stored and Saved: Yes Events: Uneventful and Well Tolerated
[2024-01-30] MEDS ORDERED: ROPIVACAINE 5 MG/ML 30 ML VIAL ONE (13:38)
[2024-01-30] MEDS ORDERED: DEXAMETHASONE SOD PHOSPHATE 4 MG/ML 1 ML VIAL ONE (13:38)
[2024-01-30] MEDS ORDERED: SUCCINYLCHOLINE CHLORIDE 200 MG/10 ML VIAL IV ONE (13:38)
[2024-01-30] MEDS ORDERED: KETAMINE HCL IN 0.9 % NACL 50 MG/5 ML SYRINGE ONE (13:38)
[2024-01-30] MEDS ORDERED: PROPOFOL 10 MG/ML 20 ML VIAL IV ONE (13:38)
[2024-01-30] MEDS ORDERED: SODIUM CHLORIDE 0.9% (PF) 10 ML VIAL ONE (13:38)
[2024-01-30] MEDS ORDERED: LIDOCAINE 1% INJ 10MG/ML (20 ML MDV) ONE (13:38)
[2024-01-30] MEDS ORDERED: ROCURONIUM 10 MG/ML (5 ML VIAL) IV ONE (13:38)
[2024-01-30] MEDS ORDERED: fentaNYL (PF) 50 MCG/ML 2 ML AMP ONE (13:38)
[2024-01-30] MEDS ORDERED: MIDAZOLAM 2 MG/2 ML VIAL ONE (13:38)
[2024-01-30] MEDS: LIDOCAINE 2%-EPI 1:100,000 20 ML VIAL SQ ONE (14:07)
[2024-01-30] MEDS: LACTATED RINGERS 1,000 ML IV ONE ×2 (14:42→14:48)
[2024-01-30 15:35] VITALS: TEMP 98.1
--- NOTE | 2024-01-30 15:44 | P.PN ---
Progress Note - Text Progress Note Date: 01/30/24 To whom it may concern: Mainor Quiles is under my surgical care. He had major abdominal surgery 01/30/2024. The following medications were used during his anesthesia including ketamine, Versed, fentanyl. [id number] medications for discharge includes Flexeril, Tylenol, ibuprofen, simethicone gas drops. Regards, Nazanin Mireles MD, FACS
--- NOTE | 2024-01-30 15:50 | P.OP ---
Date of Procedure: 01/30/24 Description of Procedure: SURGEON: NAZANIN MIRELES MD PREOPERATIVE DIAGNOSES: 1. Recurrent left inguinal hernia 2. History of bilateral inguinal hernia POSTOPERATIVE DIAGNOSES: 1. Recurrent left inguinal hernia 2. History of bilateral inguinal hernia 3. Abdominal wall adhesions OPERATION: 1. Robotic-assisted da Jeancarlos Xi laparoscopic lysis of adhesions over 30 minutes 2. Robotic-assisted da Jeancarlos Xi laparoscopic reduction and repair of recurrent reducible left indirect inguinal hernia with mesh, 10 x [address] 3. Resection of left inguinal lipoma, 2 cm ANESTHESIA: General with local anesthetic ESTIMATED BLOOD LOSS: 5 mL. SPECIMENS: 1. Left inguinal lipoma and hernia sac COMPLICATIONS: None. FINDINGS: 1. Inirect left inguinal hernia defect, 2 cm extending to the inguinal canal INDICATIONS: The patient is a 58-year-old gentleman who presents with symptomatic left inguinal hernia. Now presents for definitive surgical intervention. Laparoscopic versus open and robotic approaches were discussed. Benefits and risks including bleeding, infection, injury to the vas deferens as well as sterility and chronic groin pain were reviewed. Placement of mesh was also described. Informed consent was obtained. DESCRIPTION: In the preoperative area, the patient was marked with indelible marker along the inguinal hernia. The patient was brought to the operating room and initially laid in supine position. The abdomen had been prepped and draped in standard sterile fashion. Ioban draping was also placed. Prior to incision, a timeout protocol was confirmed with surgical team regarding patient's name including procedures to be performed and location along the right groin. Initial positioning for the robotic assisted ports were selected whereby 15 cm superior to the target anatomy, 0 degree 5 mm laparoscopic trocar entry was performed at the left upper quadrant. The abdomen was insufflated to 15 mmHg which he had tolerated well. Diagnostic laparoscopy demonstrated no injury to bowel, viscera or mesentery. Severe pelvic adhesions involving the sigmoid colon adherent to the left groin and incarcerated epiploic of the sigmoid colon was found. Small right inguinal hernia defect was found and undisturbed. Next, along the epigastrium, 8 mm robot trocar was placed. An 8-mm robotic trocar was placed under direct visualization at the right upper quadrant. An 8 mm port was placed at the left upper quadrant. All trocars were positioned between 10-cm apart from each other. An accessory trocar 12 mm placed along the right upper abdominal wall, lateral. The [employer] XI robot was primed, draped, prepared for docking along upper abdomen of the patient. The patient was positioned 21 steep Trendelenburg position I then went to the [employer] Xi console. The botany laboratory assistant was at bedside for exchange of the robot arms and equipment. The left direct inguinal hernia with incarcerated epiploic of the sigmoid colon was found. Severe pelvic occasions involving the sigmoid colon to the left pelvis and right pelvis was identified. Extensive lysis of adhesions over 30 minutes was performed using electro-Bovie cautery with scissors and vessel sealer. The left inguinal hernia defect was probed were large 4 x 4 centimeters subfascial lipoma consisted of the sidewall of the sigmoid colon was reduced of its epiploica. The contents was evaginated whereby the peritoneum was scored using Endo scissors with cautery. Once completely reduced into the abdominal cavity, the peritoneal sac of the hernia was stripped. The sac with subfascial lipoma was resected and then passed off for further pathological analysis. The size of the hernia defect was 2 cm with intraoperative films obtained. An inguinal lipoma, subfascial 3 cm was resected. Using a nonabsorbable 2-0 VLOC, the peritoneal defect of the left inguinal hernia site was closed using a pursestring suture. The defect was found to be completely closed with complete reduction of the left direct inguinal hernia. As an onlay, an 11.[address] mesh by [employer] was cut in half and entered into the abdominal cavity via the 8 mm trocar. The mesh was tacked to the pelvis using nonabsorbable 2-0 VLOC sutures. The robot was undocked from the patient's bedside. I then rescrubbed into the case. Antonio Arreguin with 0 Vicryl was used to close the right lateral upper quadrant 12 mm trocar incision. Insufflation was released from the abdominal cavity and all instruments were removed from the abdominal cavity. Air within the scrotum and pelvis was relieved. The subcutaneous apparatus and penile implant was functioning at the end of the case. The rest of incisions were reapproximated using 4-0 Monocryl in a running subcuticular fashion. Incisions were cleansed using dilute hydrogen peroxide. Liquid glue was applied to the skin. At the end of the procedure, the needle, sponge and instrument counts had been verified correct by the operating room surgical technician. The patient had tolerated the procedure well and was taken to the postanesthesia care unit in stable condition. Plan - Discharge Summary Discharge Rx Participant: No New Discharge Prescriptions: New Cyclobenzaprine [Flexeril] 10 mg PO TID #30 tab Acetaminophen Tab [Tylenol Tab] 1,000 mg PO Q6HR PRN #30 tablet PRN Reason: Pain Simethicone [Gas-X] 125 mg PO AC-TID PRN #20 capsule PRN Reason: Pain Continue Metoprolol Succinate (ER) [Toprol XL] 25 mg PO DAILY amLODIPine [Norvasc] 10 mg PO DAILY Aspirin EC [Ecotrin Low Dose] 81 mg PO DAILY tadalafiL 10 mg PO DIRECTED PRN PRN Reason: E.D. Naproxen Sodium [Aleve] 220 mg PO DAILY Clobetasol Propionate [Temovate 0.05% Cream] 1 applic TOPICAL DIRECTED PRN PRN Reason: dry skin on hands Unk Vitamin C 1 tab PO DAILY hydroCHLOROthiazide 25 mg PO DAILY NIFEdipine XL [Procardia XL] 30 mg PO DAILY Sacubitril/Valsartan [Entresto 24 mg-26 mg Tablet] 1 tab PO BID Atorvastatin [Lipitor] 20 mg PO DAILY Naltrexone HCl 50 mg PO DAILY Vitamin B12 1 tab PO WEEKLY Unk Magox 1 tab PO DAILY Discharge Medication List Metoprolol Succinate (ER) [Toprol XL] 25 mg PO DAILY 02/02/20 [History] amLODIPine [Norvasc] 10 mg PO DAILY 02/02/20 [History] Aspirin EC [Ecotrin Low Dose] 81 mg PO DAILY 06/15/20 [History] Atorvastatin [Lipitor] 20 mg PO DAILY 01/24/24 [History] Clobetasol Propionate [Temovate 0.05% Cream] 1 applic TOPICAL DIRECTED PRN 01/24/24 [History] NIFEdipine XL [Procardia XL] 30 mg PO DAILY 01/24/24 [History] Naltrexone HCl 50 mg PO DAILY 01/24/24 [History] Naproxen Sodium [Aleve] 220 mg PO DAILY 01/24/24 [History] Sacubitril/Valsartan [Entresto 24 mg-26 mg Tablet] 1 tab PO BID 01/24/24 [History] Unk Magox 1 tab PO DAILY 01/24/24 [History] Unk Vitamin C 1 tab PO DAILY 01/24/24 [History] Vitamin B12 1 tab PO WEEKLY 01/24/24 [History] hydroCHLOROthiazide 25 mg PO DAILY 01/24/24 [History] tadalafiL 10 mg PO DIRECTED PRN 01/24/24 [History] Acetaminophen Tab [Tylenol Tab] 1,000 mg PO Q6HR PRN #30 tablet 01/30/24 [Rx] Cyclobenzaprine [Flexeril] 10 mg PO TID #30 tab 01/30/24 [Rx] Simethicone [Gas-X] 125 mg PO AC-TID PRN #20 capsule 01/30/24 [Rx] Follow up Appointment(s)/Referral(s): Nazanin Mireles MD [STAFF PHYSICIAN] - 02/04/24 6:00 pm (Telehealth) Patient Instructions/Handouts: Laparoscopic Herniorrhaphy (IP) Activity/Diet/Wound Care/Special Instructions: TELEHEALTH VISIT NO LONG DRIVES OR AIRPLANE RIDES OVER 30 MINUTES FOR THE NEXT 2 WEEKS, FEBRUARY 12, DUE TO HIGH RISK OF PULMONARY EMBOLISM/DVTs Using antibacterial soap. No lifting over 10 pounds 2 weeks, FEBRUARY 12. DO NOT RETURN TO WORK PRIOR TO FEBRUARY 12. Must be cleared by surgeon May shower. No bathtub soaks for 2 weeks, FEBRUARY 12. Use ice along incisions for today to prevent swelling. Take tylenol, aleve/ibuprofen, simethicone scheduled for 3 days for best pain relief Discharge Disposition: HOME SELF-CARE
[2024-01-30 16:01] VITALS: RESP 16
[2024-01-30] MEDS: fentaNYL (PF) 50 MCG/ML 2 ML AMP IVP PRN (16:05)
[2024-01-30 17:03] VITALS: BP 133/77; PULSE 92
== END 2024-01-30 17:18 | disposition home or self-care (01) ==
LOC: OR 10:39
PROVIDERS: ATTEND Surgery Plastic and Reconstructive Surgery
DX: K40.91 Unilateral inguinal hernia, without obstruction or gangrene, recurrent (principal)
CPT/HCPCS: 49651; 64488; 80048; 85025; 88302; 88304; S2900

== ENCOUNTER → 2024-08-26 | Outpatient (CLI) | payer MEDICARE ==
--- NOTE | 2024-08-31 21:42 | P.PCN ---
Date of Procedure: 09/25/24 Operative Findings: Home sleep study History This is a 59-year-old male patient with known history of obstructive sleep apnea. The patient has severe disease with an AHI of 91 and the patient has been not tolerant to BiPAP therapy despite previous efforts to make the treatment successful by making adjustments on the pressure setting and the mask interface. The patient remains quite symptomatic. He was also declined for hypoglossal nerve stimulation therapy as the patient's initial AHI was quite elevated. He has history of alcoholism and the patient quit drinking approximately 8 months ago. He remains symptomatic from his sleep apnea. His daytime functionality is impaired because of his severe NESTOR. He is sleepy and tired and fatigued at all times. He remains to have a fragmented sleep. The patient presented to me to the office and requested a reevaluation. He was again interested in CPAP therapy. He was told that this may be potentially successful as the patient has not been drinking alcohol excessively. Comorbidities include hypertension, mild cardiomyopathy with an EF of around 40 to 45%, coronary artery disease, history of alcoholism. Physical findings Weight is 210 pounds with a body mass index of 37. Height is 6 feet and 2 inches. Technical description The [employer] ApneaLink system was used to complete his home sleep study. This is a type III home sleep study evaluation. The total recording duration was 7 hours and the patient start recording at 10:37 PM and ended at 5:37 AM. There was a total of 6 hours and 49 minutes of flow monitoring and oxygen saturation monitoring and this was an adequate study. Results Respiratory analysis showed a total of 252 obstructive apneas and 40 obstructive hypopneas. The resulting AHI was 42.8. This disease was worse in supine body position with an AHI of 58.5 while being supine Oxygen analysis The baseline pulse ox while awake was 96%, average pulse ox during sleep was 91% and the minimum pulse ox was 76%. The patient spent approximately 1 hours and 33 minutes of the sleep time below pulse ox of 89%. Cardiac summary Average heart rate was 55 with a minimum heart rate of 43 and a maximum heart of 92 Assessment Severe symptomatic NESTOR with an AHI of 42.8, worsening supine body position with an AHI of 58.5. 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 However, he continues to have severe disease with an AHI of 42.8, worsening supine body position. The patient continues to be symptomatic. He showed interest in CPAP/BiPAP therapy. I am going to discussed the findings with patient. Will try to take the treatment, he will be asked to come back to the sleep center to undergo an in lab CPAP/BiPAP titration. Encourage weight loss Avoid alcohol drinking Implement good sleep hygiene measures we will continue to follow
== END ==
LOC: 3 N SLEEP 10:44
PROVIDERS: ATTEND Internal Medicine Critical Care Medicine
DX: G47.33 Obstructive sleep apnea (adult) (pediatric) (principal); I10 Essential (primary) hypertension; I25.10 Atherosclerotic heart disease of native coronary artery without angina pectoris; I42.6 Alcoholic cardiomyopathy

== ENCOUNTER → 2024-10-15 | Outpatient (CLI) | payer MEDICARE ==
[2024-10-15 15:08] LABS: Basophils # (A) 0.03 X 10*3/uL (0.00-0.10); Basophils % (A) 0.5 %; Eosinophils # (A) 0.09 X 10*3/uL (0.04-0.35); Eosinophils % (A) 1.5 %; HGB 13.9 g/dL (13.0-17.0); Lymphocytes # (A) 2.03 X 10*3/uL (0.90-5.00); Lymphocytes % (A) 34.2 %; MCH 30.9 pg (27.0-32.0); MCHC 33.9 g/dL (32.0-37.0); MCV 91.1 FL (80.0-97.0); Mean Platelet Volume 10.1 FL (9.5-12.2); Monocytes # (A) 0.51 X 10*3/uL (0.20-1.00); Monocytes % (A) 8.6 %; NRBC Per 100 WBC 0 X 10*3/uL (0.00-0.01); Neutrophils # (A) 3.27 X 10*3/uL (1.80-7.70); Platelet Count 203 X 10*3/uL (140-440); RDW 12.3 % (11.5-14.5); WBC 5.94 X 10*3/uL (4.50-10.00)
[2024-10-15 19:42] LABS: Anion Gap 9.4 mmol/L (4.00-12.00); Carbon Dioxide 27.6 mmol/L (21.6-31.8); Potassium 4.3 mmol/L (3.5-5.5)
== END | disposition home or self-care (01) ==
LOC: LABPAT 10:55
PROVIDERS: ATTEND Orthopaedic Surgery
DX: Z01.812 Encounter for preprocedural laboratory examination (principal); M75.41 Impingement syndrome of right shoulder
CPT/HCPCS: 80051; 85025

== ENCOUNTER 2024-11-05 05:35 | Day surgery (SDC) | payer MEDICARE ==
[2024-11-03 16:07] VITALS: BMI 28.0
--- NOTE | 2024-11-04 15:00 | HP ---
HISTORY AND PHYSICAL HISTORY OF PRESENT ILLNESS: The patient is a 59-year-old gentleman seen for progressive right shoulder pain. We discussed options. He elected to proceed with right shoulder arthroscopy. Consent was obtained. PAST MEDICAL HISTORY: Hypertension. PAST SURGICAL HISTORY: Appendectomy, herniorrhaphy, spine surgery. MEDICATIONS: 1. Meloxicam. 2. Metoprolol. 3. Naprosyn. ALLERGIES: None. SOCIAL HISTORY: Denies tobacco use. PHYSICAL EVALUATION OF THE RIGHT SHOULDER: Flexion is 100 degrees. Abduction is 90 degrees. External rotation is 40 degrees with pain and weakness. Tenderness along the anterior lateral acromion rotator cuff insertion site and biceps tendon. Impingement positive 90 degrees. Distal neurovascular exam is intact. RADIOGRAPHS: Right shoulder, type 2 acromion, acromioclavicular joint osteoarthritis, cystic changes of the tuberosity. MRI of right shoulder, partial rotator cuff tear, acromioclavicular joint arthritis, labral tear. IMPRESSION: 1. Right shoulder impingement with rotator cuff tear. 2. Right shoulder acromioclavicular joint osteoarthritis. 3. Right shoulder labral tear. PLAN: Right shoulder arthroscopy with subacromial decompression, arthroscopic rotator cuff repair, Vishal procedure and debridement of labral tear. MMODL / IJN: [id number] /
[2024-11-05] MEDS ORDERED: LIDOCAINE 1% (10MG/ML) FOR IV START INTRADERMA PRN (06:08)
[2024-11-05] MEDS: LACTATED RINGERS 1,000 ML IV SCH (06:31)
[2024-11-05] MEDS: DEXAMETHASONE SOD PHOSPHATE 4 MG/ML 1 ML VIAL IV ONE (06:31)
[2024-11-05] MEDS: ONDANSETRON 4 MG/2 ML VIAL IVP ONE (06:31)
[2024-11-05] MEDS: IV FLUID CONTINUATION 1,000 ML IV ONE (06:44)
[2024-11-05] MEDS ORDERED: fentaNYL (PF) 50 MCG/ML 2 ML AMP IVP PRN (07:00)
[2024-11-05] MEDS: MIDAZOLAM 2 MG/2 ML VIAL IV PRN (07:03)
[2024-11-05] MEDS ORDERED: ROCURONIUM 10 MG/ML (5 ML VIAL) IV ONE (07:24)
[2024-11-05] MEDS ORDERED: PROPOFOL 10 MG/ML 20 ML VIAL IV ONE (07:24)
[2024-11-05] MEDS ORDERED: MIDAZOLAM 2 MG/2 ML VIAL ONE (07:24)
[2024-11-05] MEDS ORDERED: SUCCINYLCHOLINE CHLORIDE 200 MG/10 ML VIAL IV ONE (07:24)
[2024-11-05] MEDS ORDERED: GLYCOPYRROLATE 0.2 MG/ML 2 ML VIAL ONE (07:24)
[2024-11-05] MEDS ORDERED: DEXAMETHASONE SOD PHOSPHATE 4 MG/ML 1 ML VIAL ONE (07:24)
[2024-11-05] MEDS ORDERED: fentaNYL (PF) 50 MCG/ML 2 ML AMP ONE (07:24)
[2024-11-05] MEDS ORDERED: LIDOCAINE 1% INJ 10MG/ML (20 ML MDV) ONE (07:24)
[2024-11-05] MEDS ORDERED: NEOSTIGMINE 1 MG/ML 10 ML VIAL ONE (07:24)
[2024-11-05] MEDS ORDERED: ROPIVACAINE 5 MG/ML 30 ML VIAL ONE (07:24)
[2024-11-05] MEDS: LACTATED RINGERS 1,000 ML IV ONE (08:34)
[2024-11-05 09:01] VITALS: TEMP 96.9
--- NOTE | 2024-11-05 09:03 | P.OP ---
Date of Procedure: 11/05/24 Preoperative Diagnosis: Right shoulder impingement Postoperative Diagnosis: 1. Right shoulder rotator cuff tear 2. Right shoulder impingement 3. Right shoulder bicipital tendinitis 4. Right shoulder acromioclavicular joint osteoarthritis 5. Right shoulder superficial superior labral tear Procedure(s) Performed: 1. Right shoulder arthroscopic rotator cuff repair 2. Right shoulder arthroscopic subacromial decompression 3. Right shoulder arthroscopic biceps tenodesis 4. Right shoulder arthroscopic Vishal procedure 5. Right shoulder arthroscopic debridement labral tear Implants: 2Arthrex 4.75 swivel lock anchors Anesthesia: GETA, regional (Interscalene block) Surgeon: Dale Lew Information Broker #1: Juan J Escobar Estimated Blood Loss (ml): 8 Pathology: none sent Condition: stable Disposition: PACU Indications for Procedure: 59-year-old patient seen with progressive right shoulder pain. After having treatment options discussed, he elected to proceed with arthroscopy. Operative Findings: See description of procedure Description of Procedure: Patient underwent an interscalene block by department of anesthesia. The patient was then taken to the operative suite. The patient underwent a general anesthetic by the department of anesthesia. The patient was placed into a lateral position and secured. There was appropriate padding of the bony prom inence. Right shoulder was then prepped and draped in normal sterile orthopedic fashion. We placed the extremity in 10 pounds of longitudinal traction. A posterior incision was now made for a posterior working portal site. The trocar and cannula were inserted into the glenohumeral joint. Arthroscopy was initiated. Spinal needle was now inserted anteriorly, to ascertain the anterior working portal site. An incision was now made in that area, a trocar was inserted followed by a probe. There was some superficial tearing of the superior labrum. There was hyperemia along the biceps tendon. There were very mild grade I chondromalacia changes of the glenoid fossa anteriorly. I did use any motorized shaver and I debrided out the superficial labral tear. I now inserted a cannula through the anterior portal site. I passed a loop and tack stitch to the biceps tendon and then released it from the superior labral anchor. With the assistance of Javon NGUYEN I punched a hole at the interval for insertion of an anchor. The suture line was not passed through the eyelet of an Arthrex 4.75 swivel lock anchor. I placed the eyelet into the prepunched hole, I held it in position while Javon NGUYEN tensioned the suture and deployed the anchor with good fixation noted. The residual suture limb was clipped. We had a stable biceps tenodesis. The residual labrum was stable. Instruments were now removed from the glenohumeral joint. Utilizing the posterior working portal site, the trocar and cannula were inserted into the subacromial space. Arthroscopy initiated. I made an incision 2 fingerbreadths lateral to the acromion. I introduced my trocar followed by my ArthroCare ablator. I now began ablating thick subacromial bursal tissue, which exposed the undersurface of the anterior acromion. There was diminished subacromial space. There was a very prominent anterior acromion. A motorized bur was introduced and a subacromial decompression was performed. I also excised some osteophytes off the inferior aspect of the distal clavicle. The AC joint was visualized and noted to be fairly arthritic. The motorized bur was introduced in the anterior portal site and a Vishal procedure was performed without difficulty, decompressing the AC joint nicely. I turned my attention to the rotator cuff. There was a 1 cm tear along the distal supraspinatus. I debrided the margins getting down to stable tendon tissue. I abraded the footprint with a motorized bur. I passed 2 Ubretid mattress sutures through good bites of rotator cuff tendon. I punched a hole at the footprint area for insertion of an anchor. All 4 limbs of suture were passed through the eyelet of an Arthrex 4.75 swivel lock anchor. I placed the eyelet into our prepunch hole, I held it in position while Javon NGUYEN tensioned all 4 limbs of suture and deployed the anchor with good fixation noted. All residual suture limbs were now clipped. We had good compression of the tendon along the entire footprint. Instruments now removed from the portal sites. All portal sites were approximated with nylon suture. Sterile dressings were applied followed by a shoulder sling. Juan J NGUYEN assisted in this complex case. The patient was awakened, transferred to a bed, and taken to recovery in stable condition.
[2024-11-05] MEDS: HYDROmorphone 0.5 MG/0.5 ML SYRINGE IVP PRN (09:10)
[2024-11-05 10:42] VITALS: RESP 18
[2024-11-05 11:12] VITALS: BP 122/70; PULSE 59
--- NOTE | 2024-11-06 10:44 | P.ANPRN ---
Procedure Note - Anesthesia - Nerve Block Performed Right Interscalene Single Time Out Performed: Yes Date of Procedure: 11/05/24 Procedure Start Time: : Procedure Stop Time: : Location of Patient: PreOp Indication: Acute Post-Operative Pain, Requested by Surgeon Sedation Type: Sedate with meaningful contact maintained Preparation: Sterile Prep Position: Supine Needle Types: Pajunk Needle Gauge: 21 Ultrasound used to visualize needle placement: Yes Ultrasound used to observe medication spread: Yes Blood Aspirated: No Pain Paresthesia on Injection Noted: No Resistance on Injection: Normal Image Stored and Saved: Yes Events: Uneventful and Well Tolerated (Ropivacaine 0.5% 20 cc.Dexamethasone 4 mg)
== END 2024-11-05 11:24 | disposition home or self-care (01) ==
LOC: OR 05:35
PROVIDERS: ATTEND Orthopaedic Surgery
DX: M75.111 Incomplete rotator cuff tear or rupture of right shoulder, not specified as traumatic (principal); S43.431A Superior glenoid labrum lesion of right shoulder, initial encounter; M75.21 Bicipital tendinitis, right shoulder; M19.011 Primary osteoarthritis, right shoulder; M94.211 Chondromalacia, right shoulder; M75.41 Impingement syndrome of right shoulder; G89.18 Other acute postprocedural pain; I10 Essential (primary) hypertension; I25.10 Atherosclerotic heart disease of native coronary artery without angina pectoris; I42.9 Cardiomyopathy, unspecified; E78.5 Hyperlipidemia, unspecified; Z79.1 Long term (current) use of non-steroidal anti-inflammatories (NSAID); Z79.899 Other long term (current) drug therapy
CPT/HCPCS: 29827; 29828; 29826; 29824; 64415; C1713 ×3; J2250; J1100; J0690; J2405; J1171